=== PATIENT | female | born 1960 ===

== ENCOUNTER 2017-07-31 07:58 | Day surgery (SDC) | payer OTHER ==
[2017-07-31 08:56] VITALS: O2SAT 100
[2017-07-31] MEDS ORDERED: Propofol 10 mg/ml Inj (20 ML) ONE ×3 (09:13→09:40)
[2017-07-31] MEDS ORDERED: ePHEDrine 50 mg/ml Inj ONE (09:17)
[2017-07-31 10:23] VITALS: TEMP 96.9
[2017-07-31 10:49] VITALS: RESP 17
[2017-07-31 12:00] VITALS: BP 110/59; PULSE 63
== END 2017-07-31 11:30 | disposition home or self-care (01) ==
LOC: C.ENDO 07:58
PROVIDERS: ATTEND Internal Medicine
DX: D12.3 Benign neoplasm of transverse colon (principal); K64.8 Other hemorrhoids; Z86.010 Personal history of colon polyps; K63.5 Polyp of colon
CPT/HCPCS: 45380; 88305; J2001; J2704